=== PATIENT | female | born 1950 | race Caucasian/White ===

== ENCOUNTER 2024-05-23 07:15 | Day surgery (SDC) | payer MEDICARE, OTHER ==
[2024-05-23] MEDS: Polymyxin B/Trimethoprim 10 ML Bottle EYELF SCH (07:12)
[~2024-05-23 07:15] MED LIST: Cefuroxime 10 MG/ML SYRINGE EYELF SCH
[2024-05-23] MEDS: Brimonidine 0.2% Ophth Soln 5 ML Bottle EYELF SCH (07:16)
[2024-05-23] MEDS: Phenylephrine 2.5% Ophth Soln 2 ML Bot EYELF SCH (07:20)
[2024-05-23] MEDS: Tropicamide 1% Ophth Soln 3 ML Bottle EYELF SCH (07:25)
[2024-05-23] MEDS: Tetracaine HCl/PF 0.5% 4 ML Bottle EYEBOTH SCH (08:07)
[2024-05-23] MEDS: Lidocaine 1% PF 2 ML SDV INJECT SCH (08:22)
[2024-05-23] MEDS: Pilocarpine 4% Ophth Soln 15 ML Bot EYELF SCH (08:41)
== END 2024-05-23 08:58 | disposition home or self-care (01) ==
LOC: JD.SDS 07:15
PROVIDERS: ATTEND Ophthalmology
DX: E11.36 Type 2 diabetes mellitus with diabetic cataract (principal); H25.813 Combined forms of age-related cataract, bilateral; H21.81 Floppy iris syndrome; H21.42 Pupillary membranes, left eye; I10 Essential (primary) hypertension; Z79.899 Other long term (current) drug therapy
CPT/HCPCS: A9270-GY; J3490

== ENCOUNTER 2024-06-13 07:00 | Day surgery (SDC) | payer MEDICARE, OTHER ==
[2024-06-13] MEDS: Polymyxin B/Trimethoprim 10 ML Bottle EYERT SCH (07:17)
[2024-06-13] MEDS: Brimonidine 0.2% Ophth Soln 5 ML Bottle EYERT SCH (07:22)
[2024-06-13] MEDS: Phenylephrine 2.5% Ophth Soln 2 ML Bot EYERT SCH (07:27)
[2024-06-13] MEDS: Tropicamide 1% Ophth Soln 3 ML Bottle EYERT SCH (07:32)
[2024-06-13] MEDS: Tetracaine HCl/PF 0.5% 4 ML Bottle EYEBOTH SCH (08:31)
[2024-06-13] MEDS: Lidocaine 1% PF 2 ML SDV INJECT SCH (08:52)
[2024-06-13] MEDS: Pilocarpine 4% Ophth Soln 15 ML Bot EYERT SCH (09:06)
[2024-06-13] MEDS: Cefuroxime 10 MG/ML SYRINGE EYERT SCH (09:06)
== END 2024-06-13 09:20 | disposition home or self-care (01) ==
LOC: JD.SDS 07:00
PROVIDERS: ATTEND Ophthalmology
DX: E11.36 Type 2 diabetes mellitus with diabetic cataract (principal); H25.811 Combined forms of age-related cataract, right eye; H21.81 Floppy iris syndrome; H21.41 Pupillary membranes, right eye; H52.31 Anisometropia; H40.031 Anatomical narrow angle, right eye; H11.003 Unspecified pterygium of eye, bilateral; I10 Essential (primary) hypertension; E78.2 Mixed hyperlipidemia; Z79.84 Long term (current) use of oral hypoglycemic drugs; Z79.899 Other long term (current) drug therapy
CPT/HCPCS: 66982; J0697; A9270-GY; J3490